=== PATIENT | female | born 1985 | race Caucasian/White ===

== ENCOUNTER 2023-11-30 15:01 | Emergency (ER) | payer BC, SELFPAY ==
--- NOTE | ~2023-11-30 | US_ITS ---
EXAMINATION: US pelvic complete w TV DATE: 11/30/2023 22:16 INDICATION: Lower abdominal pain. Ovarian cyst. TECHNIQUE: Multiple endovaginal sonographic images of the pelvis were obtained. COMPARISON: CT dated 11/30/2023 FINDINGS: The uterus measures 7.0 x 3.1 x 4.5 cm. The endometrial complex measures 6 mm in thickness. The righ t ovary has been reportedly resected however there is a 3.0 x 1.7 x 1.8 cm soft tissue density surrou nded by ascites along the right side of the uterus which contains a couple subcentimeter cystic lesio ns with appearance suggesting a residual right ovary with ovarian follicles. The left ovary measures 8.4 x 4.1 x 4.5 cm.. There is a 4.9 x 4.7 x 4.2 cm simple appearing left ovarian cyst. There are cou ple additional smaller cysts at the left ovary measuring 7 mm and 1.6 cm, the latter with a thickened irregular wall. Alongside the larger cyst there is an additional cystic lesion however it appears mo re serpiginous and tubular suspicious for a hydrosalpinx. There is some dependent hypoechoic debris w ithin this structure. Vascular flow is identified in the left ovary on color Doppler as well as withi n the suspected right ovary. There is a moderate amount of anechoic free fluid in the pelvis. IMPRESSION: 1. Cystic structures at the left adnexal region which appear to represent a combination of simple and complex ovarian cysts and possibly a left hydrosalpinx. The 1.6 cm cyst demonstrates thickened irreg ular aiken which could represent either a corpus luteum or hemorrhagic cyst although differential wou ld include ovarian neoplasm. Would recommend either 6-12 week follow-up pelvic ultrasound or contrast -enhanced MRI for further evaluation. 2. 3.0 x 1.7 x 1.8 cm nodular soft tissue density with a couple internal centimeters cystic lesions w ith appearance consistent with the right ovary although per provided history of the right ovary has b een resected and there appears be a suture line in the right adnexal region on the prior CT. Correlat e with. Details of the reported prior surgery. This could be similarly be further assessed with MRI. 3. Moderate amount of ascites in the pelvis. Reviewed, dictated and finalized at location A. IMPRESSION: 1. Cystic structures at the left adnexal region which appear to represent a com bination of simple and complex ovarian cysts and possibly a left hydrosalpinx. The 1.6 cm cyst demonstrates thickened irregular aiken which could represent ei ther a corpus luteum or hemorrhagic cyst although differential would include ov leandro neoplasm. Would recommend either 6-12 week follow-up pelvic ultrasound or contrast-enhanced MRI for further evaluation. 2. 3.0 x 1.7 x 1.8 cm nodular soft tissue density with a couple internal centim eters cystic lesions with appearance consistent with the right ovary although p er provided history of the right ovary has been resected and there appears be a suture line in the right adnexal region on the prior CT. Correlate with. Timo hunt of the reported prior surgery. This could be similarly be further assessed w ith MRI. 3. Moderate amount of ascites in the pelvis.
--- NOTE | ~2023-11-30 | CT_ITS ---
EXAMINATION: CT abdomen pelvis w con DATE: 11/30/2023 19:15 INDICATION: Diffuse abdominal pain and cramping TECHNIQUE: Computed tomography (CT) of the abdomen and pelvis was performed with 100 mL Omnipaque-350 intravenous contrast. Automated exposure control and iterative reconstruction technique were employe d. The dose-length product was 419.16 mGy-cm. COMPARISON: 02/21/2019 FINDINGS: Dependent atelectasis in the bilateral lower lobes. Heart size is normal. No pericardial or pleural e ffusion. Status post cholecystectomy. Liver, spleen, pancreas, bilateral adrenal glands and kidneys a re normal. There is some fluid in the colon consistent with diarrhea. There is edematous-appearing wa ll thickening along multiple loops of distal ileum including the terminal ileum consistent with ileit is which could be infectious or related to Crohn's disease. No bowel obstruction. Normal appendix. Th ere is a suture line in the region of the right adnexa suggesting prior right oophorectomy. Bladder a nd uterus are unremarkable. 5.2 cm left adnexal cyst. Small amount of scattered ascites in the abdome n and pelvis most prominent in the cul-de-sac. No abscess or free intraperitoneal gas. No pathologica lly enlarged abdominal or pelvic lymphadenopathy. Bones are unremarkable. IMPRESSION: 1. Ileitis including at the terminal ileum which could be infectious or related to Crohn's disease. 2. Small amount of likely reactive ascites. 3. 5.2 cm left adnexal cyst with suggestion of prior right oophorectomy. Reviewed, dictated and finalized at location A.
[2023-11-30 15:04] VITALS: BP 139/96; PULSE 110; RESP 24; TEMP 36.4; O2SAT 100
--- NOTE | 2023-11-30 17:22 | ED.ABDPAIN ---
HPI - Abdominal Pain General Chief Complaint: Abdominal Pain <KATHRYN Hinton Last Filed: 11/30/23 17:30> Stated Complaint: abd pain <KATHRYN Hinton Last Filed: 11/30/23 17:30> Time Seen by Provider: 11/30/23 17:22 <KATHRYN Hinotn Last Filed: 11/30/23 17:30> Focused HPI: Patient is a 38 y/o female who presents to the ED with c/o lower abdominal pain. Patient reports having pain constantly since Monday. Describes the pain as a constant cramping with intermittent contraction-like sharp pains. She has not taken anything for the pain. Reports N/V/D - stool has been yellow in color, subjective fevers last night. Denies rectal bleeding, melena, fevers, bad food exposure, recent abx. GENERAL: Well-appearing, well-nourished, and in no acute distress. HEAD: Normocephalic, atraumatic. CHEST: Clear to auscultation. ?No respiratory distress. HEART: Regular rate and rhythm.? ABD: Diffuse tenderness throughout lower abdomen. No rebound. Normoactive BS. NEURO: ?Alert and oriented x3. Patient screened in triage and initial orders placed.? ?Additional care and disposition to be based upon?diagnostic testing and treatment. <KATHRYN Hinton Last Filed: 11/30/23 17:30> Source: patient <KATHRYN Hinton Last Filed: 11/30/23 17:30> Mode of arrival: ambulatory <KATHRYN Hinton Last Filed: 11/30/23 17:30> Limitations: no limitations <KATHRYN Hinton Last Filed: 11/30/23 17:30> Related Data Home Medications: Home Medications Medication Instructions Recorded Confirmed venlafaxine 37.5 mg 37.5 mg PO DAILY 10/21/21 01/04/23 capsule,extended release 24 hr (Effexor XR) <KATHRYN Hinton Last Filed: 11/30/23 17:30> Allergies/Adverse Reactions: Allergies Allergy/AdvReac Type Severity Reaction Status Date / Time clarithromycin Allergy Unknown Hives Verified 01/04/23 15:33 <Ofelia Bosch PA-C - Last Filed: 11/30/23 17:30> Review of Systems Review of Systems: CONSTITUTIONAL: Denies fever GASTROINTESTINAL: Reports abdominal pain, nausea, vomiting, and diarrhea. GENITOURINARY: Denies dysuria <Amarilis Lewis PA-C - Last Filed: 11/30/23 23:25> All systems reviewed & are unremarkable except as noted in HPI and below <Amarilis Lewis PA-C - Last Filed: 11/30/23 23:25> PMFSH Past Medical History Medical History: Medical History (Updated 11/30/23 @ 23:17 by Amarilis Lewis PA-C) Condyloma 10/08/14 TCA treatment 10/15/14 TCA treatment 10/28/14 TCA treatment 11/20/14 TCA treatment 12/05/14 TCA treatment Depression Ectopic Encounter for screening examination for sexually transmitted disease MRSA (methicillin resistant staph aureus) culture positive 03/2014 vulvar abscess Nexplanon insertion (11/27/15) <Ofelia Bosch PA-C - Last Filed: 11/30/23 17:30> Surgical History Surgical History: Surgical History (Updated 01/04/23 @ 15:36 by WALLY Miller) History of cholecystectomy (10/12/15) History of gynecological procedure (12/27/21) nexplanon insertion History of orthopedic surgery (~05/10/21) left leg History of repair of left rotator cuff <Ofelia Bosch PA-C - Last Filed: 11/30/23 17:30> Family History Family History: Family History Mother Diabetes mellitus Hypertension Grandparent Diabetes mellitus maternal grandfather Malignant neoplasm of lung maternal grandmother paternal grandmother Hypertension maternal grandfather Malignant tumor of pharyngeal recess paternal grandfather Breast cancer maternal grandmother Father Hypertension Malignant tumor of pharyngeal recess <Ofelia Bosch PA-C - Last Filed: 11/30/23 17:30> Social History Social History: Social History (Updated 0
[2023-11-30 17:36] LABS: Basophils Absolute Auto 0.1 K/mm3 (0.0-0.1); Basophils Percent Auto 0.5 % (0.2-1.2); Eosinophils Absolute Auto 0.3 K/mm3 (0-0.3); Eosinophils Percent Auto 2.6 % (0-4.4); Hematocrit 41.3 % (37.0-47.0); Hemoglobin 13.9 g/dL (12.0-15.0); Immature Granulocyte Absolute 0.04 K/mm3 (0.00-0.031); Immature Granulocyte Percent A 0.3 % (0-0.5); Lymphocytes Absolute Auto 2.19 K/mm3 (0.9-3.2); Lymphocytes Percent Auto 17.9 % (18.3-44.2); Mean Corpuscular HGB Conc 33.7 g/dl (32-36); Mean Corpuscular Hemoglobin 30.8 pg (26-34); Mean Corpuscular Volume 91.6 fl (80-100); Mean Platelet Volume 9.8 fl (7.4-10.4); Monocytes Percent Auto 8.1 % (2.6-8.5); Neutrophils Absolute Auto 8.6 K/mm3 (1.3-6.7); Neutrophils Percent Auto 70.6 % (45.5-73.1); Platelet Count Result 315 k/mm3 (150-375); Red Blood Count 4.51 M/mm3 (4.2-5.4); Red Cell Distribution Width 13.1 % (11.5-14.5); White Blood Count 12.2 K/mm3 (4.5-10.0)
[2023-11-30 17:46] LABS: Alanine Aminotransferase 14 U/L (6-35); Albumin Level 4.3 g/dL (3.5-5.1); Alkaline Phosphatase 62 U/L (38-126); Anion Gap 9 mmol/L (4-12); Aspartate Amino Transferase 18 U/L (14-36); Bilirubin,Total 0.5 mg/dL (0.2-1.3); Blood Urea Nitrogen 6 mg/dL (7-17); Calcium 8.8 mg/dL (8.4-10.2); Carbon Dioxide 21 mmol/L (22-30); Chloride 107 mmol/L (98-107); Estimated CRCL calculation 121 ml/min; Estimated Glomerular Filt Rate > 60; Glucose 111 mg/dL (65-110); Lipase 40 U/L (23-300); Potassium 3.3 mmol/L (3.4-5.0); Sodium 137 mmol/L (137-145)
[2023-11-30] MEDS: DICYCLOMINE HCL 10 MG CAPSULE 20 MG PO (18:07)
[2023-11-30] MEDS: ACETAMINOPHEN 500 MG TABLET 1000 MG PO (18:07)
[2023-11-30 18:35] VITALS: BP 143/100; PULSE 99; RESP 16; O2SAT 95
[2023-11-30 18:58] LABS: Magnesium 1.6 mg/dL (1.6-2.3)
[2023-11-30] MEDS: SODIUM CHLORIDE 0.9% IV 1,000 ML 999 ML IV CONT (19:26)
[2023-11-30] MEDS: KETOROLAC 15 MG/ML VIAL (*BKC) IV PUSH (20:07)
[2023-11-30] MEDS: POTASSIUM CHLORIDE 20 MEQ PACKET (FOR LIQUID) 40 MEQ PO (20:08)
[2023-11-30] MEDS: MAGNESIUM SULF 1 GM/D5W 100 ML 1 GM/100 ML BAG IVPB (20:16)
[2023-11-30 20:22] VITALS: BP 144/86; PULSE 88; RESP 16; O2SAT 98
[2023-11-30 20:55] LABS: Appearance Urine Cloudy (Clear); Bacteria Urine 2+ /hpf; Bilirubin Urine Negative (Negative); Blood Urine Non-Hemolyzed Trace (Negative); Color Urine Yellow (Yellow); Glucose Urine UA Negative (Negative); Ketones Urine Trace mg/dL (Negative); Leukocyte Esterase Ur Negative LEU/UL (Negative); Need Manual Microscopic Reviewed; Nitrate Urine Negative (Negative); Non Pathogenic Casts 0-2; Protein Urine Negative (Negative); Squamous Epithelial Cell Urine Moderate /hpf (Few); Urobilinogen Urine 0.2 mg/dL (<2.0)
[2023-11-30 21:02] LABS: Specific Grav Ur 1.048 (1.001-1.035)
[2023-11-30 21:03] LABS: Add Urine Microscopic? YES
[2023-11-30 21:44] VITALS: BP 125/92; PULSE 88; RESP 16; O2SAT 99
[2023-11-30] MEDS: metroNIDAZOLE 500 MG TABLET PO (23:38)
[2023-11-30] MEDS: CIPROFLOXACIN 500 MG TAB PO (23:38)
[2023-12-05 15:13] LABS: CA-125 8 U/mL (<35)
== END 2023-11-30 23:45 | disposition home or self-care (01) ==
PROVIDERS: Physician Assistant; Emergency Provider Physician Assistant; PCP Internal Medicine
DX: K52.9 Noninfective gastroenteritis and colitis, unspecified (principal); E87.6 Hypokalemia; F32.A Depression, unspecified; F17.210 Nicotine dependence, cigarettes, uncomplicated; F17.290 Nicotine dependence, other tobacco product, uncomplicated; Z86.14 Personal history of Methicillin resistant Staphylococcus aureus infection; Z90.49 Acquired absence of other specified parts of digestive tract; R18.8 Other ascites; N94.89 Other specified conditions associated with female genital organs and menstrual cycle
CPT/HCPCS: 36415; 74177; 76830; 76856; 80053; 81001; 81025; 83690; 83735; 85025; 86304; 87077; 87086; 87088; 87186; 96361; 96365; 96375; 99284; A9270; J1885; J3475; J7030; Q9967

== ENCOUNTER 2023-12-23 09:30 | Outpatient (CLI) | payer BC, SELFPAY ==
--- NOTE | ~2023-12-23 | MR_ITS ---
EXAMINATION: MR pelvis wo/w con DATE: 12/23/2023 10:43 INDICATION: Abnormal findings on prior pelvic ultrasound TECHNIQUE: Magnetic resonance imaging (MRI) of the pelvis was performed without intravenous contrast. Full-field sequences of the pelvis included axial and coronal T2-weighted SS FSE, coronal 2D FIESTA, axial T1-weighted FSPGR, axial dual-echo T1-weighted FSPGR and axial T1 weighted LAVA. Small field of view sequences included axial, sagittal and coronal T2-weighted FSE centered on the uterus and adn exa. Postcontrast sequences included a time course axial T1-weighted LAVA with full-field of view of the pelvis. COMPARISON: CT and ultrasound dated 11/30/2023 FINDINGS: There is a similar size, appearance and location to a cluster of 3 cysts or components of a septated cyst together measuring 6.2 x 3.2 x 3.7 cm. The enhancing wall/septations are thin and smooth. There is a small amount of lower signal intensity, nonenhancing debris in the smaller central cystic compon ent which corresponds to a small amount of hypoechoic material in the prior ultrasound. The additiona l smaller cystic structure the left adnexa which demonstrated irregular thickened aiken on the prior ultrasound is no longer present likely representing either a since involuted transient corpus luteum or hemorrhagic cyst. There is a 2.2 cm simple appearing right adnexal cyst off a couple additional tiny 4 mm and 2 mm cyst s associated with a small amount of soft tissue along a low signal intensity suture line. Unclear whe ther this represents a prominent ligament with associated broad ligament cysts or a residual small am ount of right ovarian tissue post reported prior right oophorectomy. The bladder and retroverted uterus are normal. 4 mm T2 hyperintense nonenhancing nabothian cyst at th e cervix. Visualized bowels including the appendix are normal. No free fluid in the pelvis. No pathol ogically enlarged pelvic or inguinal lymphadenopathy. Bones are unremarkable with normal marrow signa l throughout. IMPRESSION: 1. Stable appearance of a left adnexal 6.2 x 3.2 x 3.7 cm complex cystic structure. This could repres ent either 3 independent ovarian cysts, one with internal avascular debris versus a single complex cy st with smooth internal septations, potentially a benign cystadenoma. No solid nodular enhancing soft tissue components to elevate concern for malignant cystadenocarcinoma. The previously noted left adn exal cyst with thickened irregular aiken has resolved and likely represented a since resolved transie nt corpus luteum or hemorrhagic cyst. 2. 3 smaller simple cysts the largest measuring 2.2 cm at the right adnexa associated with a small am ount of tissue along a suture line consistent with reported prior right oophorectomy. This could repr esent either broad ligament cysts or ovarian cysts/follicles associated with a small amount of residu al ovarian tissue Reviewed, dictated and finalized at location A. IMPRESSION: 1. Stable appearance of a left adnexal 6.2 x 3.2 x 3.7 cm complex cystic struct ure. This could represent either 3 independent ovarian cysts, one with internal avascular debris versus a single complex cyst with smooth internal septations, potentially a benign cystadenoma. No solid nodular enhancing soft tissue compo nents to elevate concern for malignant cystadenocarcinoma. The previously noted left adnexal cyst with thickened irregular aiken has resolved and likely repre sented a since resolved transient corpus luteum or hemorrhagic cyst. 2. 3 smaller simple cysts the largest measuring 2.2 cm at the right adnexa asso ciated with a small amount of tissue along a suture line consistent with report ed prior right oophorectomy. This could represent either broad ligament cysts o r ovarian cysts/folli
== END 2023-12-23 09:31 | disposition home or self-care (01) ==
PROVIDERS: PCP Internal Medicine; Visit Provider Obstetrics & Gynecology
DX: N83.202 Unspecified ovarian cyst, left side (principal); N83.201 Unspecified ovarian cyst, right side; R93.89 Abnormal findings on diagnostic imaging of other specified body structures; R93.5 Abnormal findings on diagnostic imaging of other abdominal regions, including retroperitoneum
CPT/HCPCS: 72197; A9577